=== PATIENT | male | born 1950 | race Caucasian/White ===

== ENCOUNTER → 2019-04-12 08:54 | Outpatient (CLI) | payer OTHER, SELFPAY ==
--- NOTE | 2019-04-12 | DI.US.S_ITS ---
PROCEDURE: US ABDOMEN LIMITED INDICATIONS: RIGHT LOWER QUADRANT PAIN TECHNIQUE: Real-time focused scanning was performed of the inguinal region, with image documentation. COMPARISON: None. FINDINGS: Note is made of a mobile inguinal hernia which is not inflamed. No abnormal fluid collection. IMPRESSION: Right inguinal hernia, without incarceration. If surgical treatment of this finding is anticipated followup by CT scanning is recommended. Dictated by: Jesus Davis M.D. on 04/12/2019 at 14:21 Approved by: Jesus Davis M.D. on 04/12/2019 at 14:22
== END ==
PROVIDERS: PCP Student in an Organized Health Care Education/Training Program; Referring Provider Student in an Organized Health Care Education/Training Program; Visit Provider Student in an Organized Health Care Education/Training Program
DX: R10.31 Right lower quadrant pain (principal); K40.90 Unilateral inguinal hernia, without obstruction or gangrene, not specified as recurrent
CPT/HCPCS: 76705

== ENCOUNTER → 2019-07-23 09:50 | Outpatient (CLI) | payer OTHER, SELFPAY ==
[2019-07-24 03:36] LABS: COVID19 Sendout Not Detected (Not Detect)
== END ==
PROVIDERS: PCP Student in an Organized Health Care Education/Training Program; Visit Provider Physician Assistant
DX: Z01.812 Encounter for preprocedural laboratory examination (principal)
CPT/HCPCS: 87635

== ENCOUNTER 2019-07-26 06:36 | Day surgery (SDC) | payer OTHER, SELFPAY ==
[2019-07-24 11:41] VITALS: BMI 22.5
[2019-07-26] VITALS (10 sets, daily range): BP systolic 115–159; BP diastolic 62–89; PULSE 96–114; RESP 9–19; TEMP 36.1–37.4; O2SAT 96–100; BMI 21.7
[2019-07-26] MEDS: ACETAMINOPHEN 325 MG TABLET 975 MG PO (07:21)
[2019-07-26] MEDS: CELECOXIB 200 MG CAPSULE 400 MG PO (07:21)
[2019-07-26] MEDS: LACTATED RINGERS 1,000 ML 42 ML IV ×2 (07:22→09:05)
[2019-07-26] MEDS: GABAPENTIN 300 MG CAPSULE PO (07:22)
--- NOTE | 2019-07-26 07:23 | PM.PREOP ---
Pre-operative Note COVID-19 COVID-19 status: Negative Result date/Date tested (Pos, Neg/Pending): 07/23/19 Interval Note History & Physical reviewed/Exam performed by Physician: Yes Changes to H&P: No
[2019-07-26] MEDS: CEFAZOLIN 2 GM/100 ML FROZ.PIGGY IV (07:31)
--- NOTE | 2019-07-26 08:09 | SUR.OPER ---
Supine on padded OR bed, head on pillow, arm padded and tucked at side, legs uncrossed, safety belt at thigh, tape over blanket over lower legs .
[2019-07-26] MEDS: BUPIVACAINE 0.25% W/ EPI 30 ML VIAL 60 ML INJ (09:17)
--- NOTE | 2019-07-26 09:24 | PM.OP.1 ---
Operative Date/Time/Diagnoses Date of procedure: 07/26/19 Time of procedure: 09:24 Pre-op diagnosis: right inguinal hernia Post-op diagnosis: other (bilateral inguinal hernias) Procedure & Clinicians Procedure: Laparoscopic repair of right inguinal hernia with BARD large 3-D Max mesh, lysis of intra-abdominal adhesions Same procedure as scheduled: Yes Indications: This is a 68-year-old man with a symptomatic right inguinal hernia Surgeon: Lidia Flood Anesthesia Type: General Operative Notes Findings: large indirect right inguinal hernia, heavily scarred; moderate sized indirect left inguinal hernia (not repaired per patient) Specimen(s): none sent Prosthetic devices, grafts, tissues, transplants, or devices: Large 3-D max mesh Estimated Blood Loss (mL): 5 Blood products transfused: none Procedure in detail: The patient was brought into the operating room and placed supine on the OR table. Sequential compression devices were placed on both legs and turned on. Appropriate perioperative antibiotics were given prior to the start of surgery. General anesthesia was induced the patient was intubated. A Chamberlain catheter was placed sterilely in the bladder. The abdomen was prepped and draped in sterile fashion. Surgical time-out was conducted. Local anesthetic was injected under the skin just superior to the umbilicus and a 5 mm vertical incision was made at this site. The umbilical stalk was grasped with a Eneida and elevated. A Veress needle was passed through the fascia into proper position. The position was tested with a saline drop test which was appropriate for intra-abdominal Veress needle placement. The abdomen was then insufflated in the usual fashion. Once insufflated to 15 mm Hg the Veress needle was removed and a 5 mm optical trocar was placed under direct vision using a 5 mm 30 degree scope. Once the camera was inside the abdomen I took a look around. There was no injury from port placement. Two additional ports were placed in a similar fashion in the right and left mid clavicular line at the level of the umbilicus, one handbreadth lateral to the umbilicus. The umbilical port was upsized to a 10mm port. There were dense adhesions just inferior to the umbilical port. These were taken down using [place] grasper and Metzenbaum scissors with cautery so that the umbilical port could be freed and to avoid getting hung up on the adhesions. There was no bowel in the adhesions. They were all omentum. Attention was then turned to the pelvis, and both inguinal regions were evaluated. On the left sidethere was a moderate indirect hernia defect. On the right side there was a deep indirect hernia defect with heavy scar. On the right side local anesthetic was in the infiltrated into the abdominal wall using 0.25% Marcaine with epi, in the region of the expected peritoneal incision. Metzenbaum scissors attached to cautery were then used to incise the peritoneum transversely from the midline laterally to the ASIS, 10 cm superior to the inguinal hernia defect. The peritoneal flap was developed down to the inguinal hernia defects. When I reached the defect I found that the sac was heavily scarred in to the inguinal canal and cord structures. Prolonged tedious dissection was undertaken adding an extra 45 minutes to the operation in order to take down the sac safely. There was moderate amount of neovascularization and a small blood vessel had to be controlled with 5 mm clips. Once the flap had been fully developed and the cord structures were completely exposed, and the hernia defect had been fully evaluated, I then exposed the pubic tubercle and push down the bladder so that there was space for good mesh placement. There was a small direct defect, no femoral defect, and all were well exposed for mesh placement. A large 3DMax macro porous mesh was then brought into the field. I placed it through the 10 mm port and positioned it within the surgical defect covering the direct, indirect, and femoral space with 5 cm overlap in each direction. I then secured the mesh to the pubic tubercle in 2 locations using dissolvable surgical tacks. I then secured the mesh to the abdominal wall at its superior edge, far away from the triangle of doom and the triangle of pain with a single absorbable tack. These tacks were placed avoiding the epigastric vessels as well. Once the mesh was secured in place I brought up the peritoneal flap. There was no clam shelling or bending of the mesh when the peritoneal flap was brought up. I then secured the peritoneum up to the abdominal wall using the same surgical tacker, with dissolvable tacks. There was no gapping of the peritoneal flap or exposed mesh. The hernia sac was large and redundant, and therefore a PDS endoloop was placed on the sac in order to send should up so that no loops of bowel could involute into the sac. Once the endoloop was in place I took another look at the peritoneal flap. It was well secured to the abdominal wall, with no gaping, no active bleeding, no exposed mesh. I took a final look at the left side. There was a small indirect hernia there, but as the patient had clearly indicated prior to surgery he did not want the left side repaired even if I found a hernia on that side. I took a picture of the left side, and did nothing else to that side. At this point the umbilical port site was closed with 0 Vicryl suture in the fascia using a Imtiaz-Priscilla suture Passer. Local anesthetic was infiltrated into the umbilical area. A total of 60 mL of 0.25% Marcaine with epi was used for the entire case. Insufflation was then removed from the abdomen, and the umbilical port site was closed with 3-0 Vicryl in the subcutaneous layers, and 4 Monocryl in the skin. The other 2 port sites were closed with 4-0 Monocryl in the skin. Each port site was sealed with Dermabond. Local anesthetic was given at each of the port sites and in the fascia. This concluded the procedure. At this point the needle sponge and instrument counts were correct. Patient was awakened from anesthesia and extubated. The Chamberlain catheter was removed, and the testicles were brought down to ensure they were in proper position. The patient was transferred to the postanesthesia care unit in stable condition. Complications: none Post-operative Condition: stable Disposition: PACU
[2019-07-26] MEDS: INSULIN ASPART 100 UNIT/ML 10ML VIAL SUBCUT (09:41)
[2019-07-26] MEDS: fentaNYL 100 MCG/2 ML INJ IV ×2 (09:48→09:57)
[2019-07-26] MEDS: OXYCODONE IR 5 MG TABLET PO (10:34)
== END 2019-07-26 11:01 | disposition home or self-care (01) ==
PROVIDERS: PCP Student in an Organized Health Care Education/Training Program; Referring Provider Surgery; Visit Provider Surgery
PROC: 0YQ54ZZ Repair Right Inguinal Region, Percutaneous Endoscopic Approach (ICD-10-PCS; CPT 49650; principal; 2019-07-26 07:45)
DX: K40.20 Bilateral inguinal hernia, without obstruction or gangrene, not specified as recurrent (principal); I10 Essential (primary) hypertension; R73.03 Prediabetes; K66.0 Peritoneal adhesions (postprocedural) (postinfection)
CPT/HCPCS: 49650; C1781; J0330; J0690; J2405; J2704; J3010

== ENCOUNTER → 2019-09-15 19:34 | Outpatient (ROUT) | payer OTHER, SELFPAY ==
[2019-09-15 19:46] LABS: BUN Creatinine Ratio 23.2 (6-22); Blood Urea Nitrogen 23 mg/dL (9-20); Calcium 10.3 mg/dL (8.4-10.2); Carbon Dioxide 23 mmol/L (22-32); Chloride 103 mmol/L (98-107); Estimated Glomerular Filt Rate > 60.0 mL/min (>60); Glucose 104 mg/dL (80-110); HEMOLYSIS 25 (0-50); Potassium 4.2 mmol/L (3.4-5.1); Sodium 136 mmol/L (137-145)
== END ==
PROVIDERS: PCP Student in an Organized Health Care Education/Training Program; Visit Provider Student in an Organized Health Care Education/Training Program
DX: I10 Essential (primary) hypertension (principal)
CPT/HCPCS: 80048

== ENCOUNTER 2021-02-10 15:39 | Emergency (ER) | payer MEDICARE, SELFPAY ==
[2021-02-10 15:42] VITALS: BP 159/87; PULSE 114; RESP 20; TEMP 36.9; O2SAT 97
[2021-02-10 16:06] LABS: Add Manual Diff / Slide Review NO; Basophils Absolute Auto 100 /uL (0-100); Basophils Percent Auto 1.1 % (0-2); Eosinophils Absolute Auto 0 /uL (0-450); Eosinophils Percent Auto 0.5 % (2-4); Hemoglobin 15.8 g/dL (13.5-17.5); Lymphocytes Absolute Auto 1000 /uL (1100-4500); Lymphocytes Percent Auto 11.4 % (25-40); Mean Corpuscular HGB Conc 34.4 % (30-36); Mean Corpuscular Volume 87.3 fL (80-100); Monocytes Absolute Auto 700 /uL (0-900); Monocytes Percent Auto 8.4 % (3-14); Neutrophils Absolute Auto 6600 /uL (1500-7000); Neutrophils Percent Auto 78.6 % (50-75); Platelet Count 228 X10^3/uL (150-400); Red Blood Cell Count 5.27 X10^6/uL (4.5-5.9); Red Cell Distribution Width 13.8 % (11.6-14.8); White Blood Cell Count 8.4 X10^3/uL (4.5-11.0)
[2021-02-10 16:15] LABS: Alanine Aminotransferase 26 IU/L (<50); Albumin 4.7 g/dL (3.5-5.0); Albumin Globulin Ratio 1.4 (1.0-2.8); Alkaline Phosphatase 44 U/L (38-126); Aspartate Aminotransferase 29 IU/L (17-59); BUN Creatinine Ratio 14.9 (6-22); Bilirubin Total 0.9 mg/dL (0.2-1.3); Blood Urea Nitrogen 18 mg/dL (9-20); Calcium 9.8 mg/dL (8.4-10.2); Carbon Dioxide 25 mmol/L (22-32); Chloride 104 mmol/L (98-107); Estimated Glomerular Filt Rate 59.5 mL/min (>60); Globulin 3.3 g/dL (1.7-4.1); Glucose 192 mg/dL (80-110); HEMOLYSIS < 15 (0-50); Lipase 65 U/L (23-300); Potassium 3.3 mmol/L (3.4-5.1); Sodium 137 mmol/L (137-145)
== END 2021-02-10 18:37 | disposition left against medical advice (07) ==
PROVIDERS: Emergency Provider Emergency Medicine; PCP Student in an Organized Health Care Education/Training Program
DX: Z53.21 Procedure and treatment not carried out due to patient leaving prior to being seen by health care provider (principal)
CPT/HCPCS: 80053; 83690; 85025; 99281

== ENCOUNTER → 2021-08-20 09:06 | Outpatient (CLI) | payer MEDICARE, SELFPAY ==
[2021-08-20 10:25] LABS: COVID19 -Nasal RAPID Negative (Negative)
== END ==
PROVIDERS: PCP Student in an Organized Health Care Education/Training Program; Visit Provider Surgery
DX: Z20.822 Contact with and (suspected) exposure to COVID-19 (principal); Z01.812 Encounter for preprocedural laboratory examination
CPT/HCPCS: 87635; C9803

== ENCOUNTER 2021-08-21 09:02 | Day surgery (SDC) | payer OTHER, SELFPAY ==
[2021-08-21] MEDS: LACTATED RINGERS 1,000 ML 42 ML IV (09:16)
[2021-08-21 09:18] VITALS: BP 134/77; PULSE 105; RESP 15; TEMP 36.8; O2SAT 99; BMI 21.9
--- NOTE | 2021-08-21 10:04 | PM.HP.1 ---
History of Present Illness History of Present Illness Date Patient Seen: 08/21/21 Time Patient Seen: 10:04 Chief complaint: SDC Narrative: Canelo is a 70-year-old man who is here for colonoscopy. He believes it has been greater than 10 years since his last colonoscopy. He has no known family history of colon cancer. Patient History Medical History (Updated 08/21/21 @ 10:04 by Barrett Thayer MD) BP (high blood pressure) Enlarged prostate Gallbladder & bile duct stone with obstruction Hyperglycemia Kidney stone Seasonal allergies Surgical History (Updated 08/08/19 @ 09:14 by Lidia Flood MD) Hx of cholecystectomy (2006) Family & Social History Family History Father Hypertension Congestive heart failure Mother Cancer Social History: household members spouse Tobacco & Substance use: Smoking Status Never smoker alcohol intake current alcohol intake frequency holiday/special occasion Substance Use Type does not use Meds Home Medications and Allergies Home Medications Medication Instructions Recorded Confirmed Type lisinopril 40 mg tablet 40 mg PO DAILY 07/13/19 08/21/21 History loratadine 10 mg tablet (Claritin) 10 mg PO DAILY 07/13/19 08/21/21 History triamcinolone acetonide 0.025 % 1 applictn topical DAILY 07/13/19 08/08/19 History topical cream amlodipine 10 mg tablet 10 mg PO DAILY 07/24/19 08/21/21 History docusate sodium 100 mg capsule 100 mg PO BID prevent constipation 07/26/19 08/21/21 Rx from pain medications #20 caps oxycodone 5 mg tablet 5 mg PO Q4H PRN post operative 07/26/19 08/21/21 Rx pain #30 tabs Allergies Allergy/AdvReac Type Severity Reaction Status Date / Time grass pollen-perennial rye, Allergy Intermediate Verified 08/21/21 09:26 standar Exam Vital Signs (past 8 hours): - 08/21/21 09:18 Temperature 98.2 F Pulse Rate 105 H Respiratory Rate 15 Blood Pressure 134/77 Pulse Oximetry 99 Oxygen Delivery Method Room Air Oxygen Delivery Method Room Air Const General: healthy appearing Resp Effort & Inspection: normal respiratory effort Assessment & Plan Assessment and plan (1) Colon cancer screening: Status: Acute Plan We reviewed the risks and benefits of colonoscopy for colon cancer screening and he would like to proceed. Time Spent With Patient Critical Care time: I spent a total of [] minutes of critical care time on this patient's care today; this time is exclusive of procedural time.
[2021-08-21] MEDS: MIDAZOLAM 5 MG/5 ML VIAL 6 MG IV (10:19)
[2021-08-21] MEDS: fentaNYL 250 MCG/5 ML INJ 125 MCG IV (10:19)
--- NOTE | 2021-08-21 10:35 | PM.OP.COLON ---
Operative Date/Time/Diagnoses Date of procedure: 08/21/21 Time of procedure: 10:36 Pre-op diagnosis: Colon cancer screening Post-op diagnosis: same Procedure & Clinicians Study performed: Colonoscopy Same procedure as scheduled: Yes Surgeon: Barrett Thayre Procedure Notes Procedure in detail: Surgeon: Barrett Thayer MD Procedure: The patient was brought to the endoscopy suite, placed in left lateral decubitus position. The patient was connected to monitoring devices. A time-out was performed. Sedation was administered. Once the patient was adequately sedated, a digital rectal exam was performed and was normal. The scope was then inserted and advanced to the cecum where the appendiceal orifice was identified and photographed. The scope was then slowly withdrawn over greater than 6 minutes. The mucosa was thoroughly inspected. No polyps were noted. No diverticula were noted. The scope was retroflexed in the rectum. No abnormalities were noted there. The scope was straightened and removed. The patient was awakened and brought to recovery. Versed: 6 mg Fentanyl: 125 mcg EBL: 0 Findings: Normal colon Scope withdrawal time: 7 Sedation minutes: 18 Post-procedure Recommendations: Colonoscopy in 10 years
[2021-08-21 10:40] VITALS: BP 107/77; PULSE 98; RESP 16; TEMP 37.3; O2SAT 94
[2021-08-21 10:50] VITALS: BP 117/75; PULSE 92; RESP 15; TEMP 37.2; O2SAT 99
== END 2021-08-21 11:05 | disposition home or self-care (01) ==
PROVIDERS: PCP Student in an Organized Health Care Education/Training Program; Referring Provider Surgery; Visit Provider Surgery
PROC: 0DJD8ZZ Inspection of Lower Intestinal Tract, Via Natural or Artificial Opening Endoscopic (ICD-10-PCS; CPT 45378; principal; 2021-08-21 10:00)
DX: Z12.11 Encounter for screening for malignant neoplasm of colon (principal)
CPT/HCPCS: G0121; 99152; J2250; J3010

== ENCOUNTER → 2023-01-19 08:32 | Outpatient (CLI) | payer MEDICARE, SELFPAY ==
[2023-01-19 09:11] LABS: Add Manual Diff / Slide Review NO; Basophils Absolute Auto 100 /uL (0-100); Eosinophils Absolute Auto 100 /uL (0-450); Eosinophils Percent Auto 1.6 % (2-4); Hematocrit 47.4 % (41-53); Hemoglobin 16.5 g/dL (13.5-17.5); Lymphocytes Absolute Auto 700 /uL (1100-4500); Lymphocytes Percent Auto 12.7 % (25-40); Mean Corpuscular HGB Conc 34.8 % (30-36); Mean Corpuscular Hemoglobin 30.8 PG (26-34); Mean Corpuscular Volume 88.4 fL (80-100); Monocytes Absolute Auto 500 /uL (0-900); Monocytes Percent Auto 8.6 % (3-14); Neutrophils Absolute Auto 4000 /uL (1500-7000); Neutrophils Percent Auto 76.1 % (50-75); Platelet Count 184 X10^3/uL (150-400); Red Blood Cell Count 5.36 X10^6/uL (4.5-5.9); Red Cell Distribution Width 13.6 % (11.6-14.8); White Blood Cell Count 5.2 X10^3/uL (4.5-11.0)
[2023-01-19 10:08] LABS: Alanine Aminotransferase 27 IU/L (<50); Albumin 4.4 g/dL (3.5-5.0); Albumin Globulin Ratio 1.7 (1.0-2.8); Alkaline Phosphatase 40 U/L (38-126); Aspartate Aminotransferase 24 IU/L (17-59); BUN Creatinine Ratio 22.9 (6-22); Bilirubin Total 0.7 mg/dL (0.2-1.3); Blood Urea Nitrogen 24 mg/dL (9-20); Calcium 10.3 mg/dL (8.4-10.2); Carbon Dioxide 26 mmol/L (22-32); Chloride 101 mmol/L (98-107); Cholesterol 177 mg/dL (140-199); Estimated Glomerular Filt Rate > 60 mL/min (>60); Globulin 2.6 g/dL (1.7-4.1); Glucose 179 mg/dL (80-110); HDL Cholesterol 46 mg/dL (40-60); HEMOLYSIS < 15 (0-50); LDL Cholesterol Calculated 97 mg/dL (<100); Sodium 133 mmol/L (137-145); Triglycerides 170 mg/dL (35-150)
[2023-01-19 10:41] LABS: Microalbumi Creatinin Ratio Ur 154.3 ug/mg CR (<30); Microalbumin Urine Random 14.2 mg/dL (0-1.6)
== END ==
PROVIDERS: PCP Family Medicine; Referring Provider Family Medicine; Visit Provider Family Medicine
DX: I10 Essential (primary) hypertension (principal); E11.9 Type 2 diabetes mellitus without complications
CPT/HCPCS: 36415; 80053; 80061; 82043; 82570; 85025; 87389

== ENCOUNTER → 2023-02-12 08:11 | Outpatient (CLI) | payer MEDICARE, SELFPAY ==
[2023-02-12 09:30] LABS: Hemoglobin A1C% w Est Avg Glu 7.1 % (4.0-6.0)
== END ==
PROVIDERS: PCP Family Medicine; Referring Provider Family Medicine; Visit Provider Family Medicine
DX: E11.9 Type 2 diabetes mellitus without complications (principal)
CPT/HCPCS: 36415; 83036

== ENCOUNTER → 2023-05-13 07:55 | Outpatient (CLI) | payer MEDICARE, SELFPAY ==
[2023-05-13 09:03] LABS: Hemoglobin A1C% w Est Avg Glu 6.2 % (4.0-6.0)
[2023-05-13 09:34] LABS: Prostate Specific Antigen Scrn 0.339 ng/mL (0.1-4.0)
== END ==
PROVIDERS: PCP Family Medicine; Referring Provider Family Medicine; Visit Provider Family Medicine
DX: Z00.00 Encounter for general adult medical examination without abnormal findings (principal); E11.29 Type 2 diabetes mellitus with other diabetic kidney complication; Z12.5 Encounter for screening for malignant neoplasm of prostate; R80.9 Proteinuria, unspecified; E78.5 Hyperlipidemia, unspecified
CPT/HCPCS: 36415; 83036; G0103

== ENCOUNTER 2023-10-03 12:48 | Emergency (ER) | payer MEDICARE, SELFPAY ==
[2023-10-03] VITALS (11 sets, daily range): BP systolic 128–165; BP diastolic 70–88; PULSE 83–106; RESP 14; TEMP 37.4; O2SAT 96–98; BMI 23.1
[2023-10-03] MEDS: ONDANSETRON 4 MG/2 ML INJ IV (13:17)
[2023-10-03] MEDS: MORPHINE 4 MG/ML INJ IV (13:18)
--- NOTE | 2023-10-03 13:26 | ED.ABDPAIN ---
HPI - Abdominal Pain General Chief Complaint: Urogenital-Male Stated Complaint: [place]; Kidney Pain, Blood in Urine Time Seen by Provider: 10/03/23 13:25 Source: patient Mode of arrival: Ambulatory History of Present Illness HPI narrative: 72-year-old male with history of previous kidney stones, last event 3 years ago, now with 1 week duration of right flank pain, some discomfort to right groin area. Some darkening of the urine. No fevers or chills. He took ibuprofen this morning with little relief. He feels this is more sharp in quality than his previous kidney stone passing events. He does not have any recent diarrhea, no black or red stool. No cough or shortness of breath. No injury, fall, blunt trauma, lifting, new activities. Related Data Previous Rx's Medication Instructions Recorded metronidazole 0.75 % topical cream 1 applic topical DAILY #45 grams 01/19/23 atorvastatin 20 mg tablet (Lipitor) 20 mg PO BEDTIME cholesterol #90 02/23/23 tabs glipizide 2.5 mg tablet, extended 2.5 mg PO DAILY blood sugars #90 02/23/23 release 24 hr tabs amlodipine 10 mg tablet 10 mg PO DAILY #90 tabs 05/18/23 valsartan 80 1 tab PO DAILY #90 tabs 05/18/23 mg-hydrochlorothiazide 12.5 mg tablet ondansetron 4 mg disintegrating 4 mg PO Q6H PRN nausea and 10/03/23 tablet vomiting #10 tabs oxycodone-acetaminophen 2.5 mg-325 1 tab PO Q4-6H PRN pain #10 tabs 10/03/23 mg tablet tamsulosin 0.4 mg capsule 0.4 mg PO DAILY #30 caps 10/03/23 Allergies Allergy/AdvReac Type Severity Reaction Status Date / Time grass pollen-perennial rye, Allergy Intermediate Verified 05/18/23 09:44 standar Review of Systems Review of Systems Narrative: see HPI Patient History Medical History (Updated 10/03/23 @ 15:28 by Dominick Luther MD) Type 2 diabetes mellitus with microalbuminuria, without long-term current use of insulin Encounter for subsequent annual wellness visit (AWV) in Medicare patient Eczema (~2017) Actinic keratosis (~2018) Allergies (~1955) Mumps (~1957) Measles (~1959) Chicken pox (~1961) Tinnitus (~1991) Rosacea Benign essential HTN Seasonal allergies Enlarged prostate Hyperglycemia Gallbladder & bile duct stone with obstruction (~2002) Kidney stone (~2013) BP (high blood pressure) Surgical History (Updated 02/21/23 @ 19:32 by Merissa Daily) Anesthesia History of hernia repair (~2020) Hx of cholecystectomy (2006) Family History (Updated 02/21/23 @ 19:34 by Merissa Daily) Father Hypertension Congestive heart failure History of heart disease Mother Cancer Grandfather Kidney failure Social History household members: spouse Smoking Status: Never smoker alcohol intake: current Smoking Status: Never smoker alcohol intake frequency: holidays/special occasions only Substance Use Type: does not use Exam Narrative Exam Narrative: GENERAL: Well-developed patient, in mild distress. HEAD: Atraumatic. Normocephalic. EYES: Pupils equal round and reactive. Extraocular motions intact. No scleral icterus. No injection or drainage. ENT: Nose without bleeding, purulent drainage. Throat without erythema, tonsillar hypertrophy or exudate. Airway patent. NECK: Trachea midline. Non tender CARDIOVASCULAR: Regular rate and rhythm without murmurs, gallops, or rubs. RESPIRATORY: Clear to auscultation. Breath sounds equal bilaterally. No wheezes, rales, or rhonchi. GASTROINTESTINAL: Abdomen soft, non-tender, nondistended. EXTREMITIES: No edema or joint tenderness. BACK: Nontender without deformity or crepitance. No flank tenderness. NEURO: AOx3. SKIN: No rash or erythema of visible areas Initial Vital Signs Initial Vital Signs: Vital Signs Temperature 99.4 F 10/03/23 12:51 Pulse Rate 95 H 10/03/23 12:51 Respiratory Rate 14 10/03/23 12:51 Blood Pressure 133/80 10/03/23 12:51 Pulse Oximetry 97 10/03/23 12:51 Oxygen Delivery Method Room Air 10/03/23 12:51 Course Orders Ordered: ED Orders 10/03/23 13:02 EKG-12 Lead Stat 10/03/23 13:09 Complete Blood Count AUTO DIFF Stat Comprehensive Metabolic Panel Stat Lipase Stat 10/03/23 13:35 CT abdomen pelvis w con Stat 10/03/23 13:40 Urine Microscopic Stat Ondansetron HCl (Ondansetron 4 Mg/2 Ml Inj) 4 mg IV NOW PRN PRN Reason: Nausea And Vomiting Last Admin: 10/03/23 13:17 Dose: 4 mg Documented By: DIANNE Ondansetron HCl (Ondansetron 4 Mg Odt) 4 mg PO NOW PRN PRN Reason: Nausea And Vomiting Discontinued Medications Sodium Chloride (Normal Saline 0.9%) 1,000 mls @ 500 mls/hr IV BOLUS ONE Stop: 10/03/23 15:35 Last Infusion: 10/03/23 15:22 Dose: Infused Documented By: Admin: 10/03/23 13:41 Dose: 500 mls/hr Documented By: DIANNE Morphine Sulfate (Morphine 4 Mg/Ml Inj) 4 mg IV NOW ONE Stop: 10/03/23 13:04 Last Admin: 10/03/23 13:18 Dose: 4 mg Documented By: DIANNE Oxycodone/Acetaminophen (Oxycodone/Acetaminophen 5/325 Tablet) 1 tab PO NOW ONE Stop: 10/03/23 15:17 Vital Signs Vital signs: Vital Signs - 8 hr 10/03/23 12:51 10/03/23 13:24 10/03/23 13:24 Temperature 99.4 F Pulse Rate 95 H 89 Respiratory Rate 14 Blood Pressure 133/80 139/77 Pulse Oximetry 97 98 Oxygen Delivery Method Room Air 10/03/23 13:30 10/03/23 13:30 10/03/23 13:55 Temperature Pulse Rate 106 H 95 H Respiratory Rate Blood Pressure 165/83 H Pulse Oximetry 98 98 Oxygen Delivery Method 10/03/23 13:55 10/03/23 14:00 10/03/23 14:00 Temperature Pulse Rate 90 Respiratory Rate Blood Pressure 155/82 H 135/71 Pulse Oximetry 96 Oxygen Delivery Method 10/03/23 14:30 10/03/23 14:30 10/03/23 14:50 Temperature Pulse Rate 88 91 H Respiratory Rate Blood Pressure 131/76 Pulse Oximetry 97 98 Oxygen Delivery Method 10/03/23 14:51 10/03/23 14:51 10/03/23 15:00 Temperature Pulse Rate 95 H Respiratory Rate Blood Pressure 149/85 H 137/88 Pulse Oximetry 98 Oxygen Delivery Method 10/03/23 15:00 10/03/23 15:30 10/03/23 15:30 Temperature Pulse Rate 86 83 Respiratory Rate Blood Pressure 131/70 Pulse Oximetry 97 96 Oxygen Delivery Method 10/03/23 16:01 10/03/23 16:01 Temperature Pulse Rate 86 Respiratory Rate Blood Pressure 128/77 Pulse Oximetry 96 Oxygen Delivery Method MDM - Abdominal Pain Lab Data Attestation: I reviewed the patient's lab results. 10/03/23 13:09 10/03/23 13:09 Labs: Lab Results 10/03/23 10/03/23 Range/Units 13:09 13:40 WBC 7.1 (4.5-11.0) X10^3/uL RBC 5.39 (4.5-5.9) X10^6/uL Hgb 16.8 (13.5-17.5) g/dL Hct 47.9 (41-53) % MCV 88.9 (80-100) fL MCH 31.2 (26-34) PG MCHC 35.1 (30-36) % RDW 13.7 (11.6-14.8) % Plt Count 213 (150-400) X10^3/uL Neut % (Auto) 72.9 (50-75) % Lymph % (Auto) 13.9 L (25-40) % Lewis % (Auto) 10.9 (3-14) % Eos % (Auto) 1.7 L (2-4) % Baso % (Auto) 0.6 (0-2) % Neut # (Auto) 5200 (5060-4335) /uL Lymph # (Auto) 1000 L (4699-7083) /uL Lewis # (Auto) 800 (0-900) /uL Eos # (Auto) 100 (0-450) /uL Baso # (Auto) 0 (0-100) /uL Sodium 136 L (137-145) mmol/L Potassium 3.9 (3.4-5.1) mmol/L Chloride 104 (98-107) mmol/L Carbon Dioxide 23 (22-32) mmol/L BUN 29 H (9-20) mg/dL Creatinine 1.40 H (0.66-1.25) mg/dL Estimated GFR 54 L (>60) mL/min BUN/Creatinine Ratio 20.7 (6-22) Glucose 117 H (80-110) mg/dL Calcium 10.5 H (8.4-10.2) mg/dL Total Bilirubin 1.4 H (0.2-1.3) mg/dL AST 37 (17-59) IU/L ALT 44 (<50) IU/L Alkaline Phosphatase 54 (38-126) U/L Total Protein 7.6 (6.3-8.2) g/dL Albumin 4.5 (3.5-5.0) g/dL Globulin 3.1 (1.7-4.1) g/dL Albumin/Globulin Ratio 1.5 (1.0-2.8) Lipase 68 (23-300) U/L Urine RBC 5-10/hpf H (0-5/HPF) Urine WBC 0-1/hpf (0-5/HPF) Ur Squamous Epith Cells None seen (0-5/HPF) Urine Bacteria None seen (None) Vol Urine Centrifuged 10ml (spun) Point of care testing: Urine Dip Bedside Urine Glucose Negative Bedside Urine Bilirubin - Negative Bedside Urine Ketone - Negative Urine Specific Timblin 1.005 Bedside Urine Occult Blood + Bedside Urine pH 7.0 Bedside Urine Protein - Negative Bedside Urine Urobilinogen - Negative Bedside Urine Nitrite - Negative Bedside Urine Leukocytes - Negative Esterase Imaging Data CT scan - abdomen/pelvis: Radiologist's Impression: [place] [address] CT Scan Report Signed Patient: Canelo Phan MR#: [id number] : 1950 Acct:[id number] Age/Sex: 72 / M Date of Service: 10/03/23 Loc: ED Accession Number: [id number] Procedure: CT abdomen pelvis w con Ordering Provider: Dominick Luther MD PROCEDURE: CT ABDOMEN PELVIS W CON INDICATIONS: right flank pain, hx stones, thinks feels different TECHNIQUE: After the administration of intravenous contrast, axial sections acquired from the lung bases to the pubic symphysis. Coronal and sagittal reformats were performed. For radiation dose reduction, the following was used: automated exposure control, adjustment of mA and/or kV according to patient size. COMPARISON: None. FINDINGS: Lower thorax: The lung bases are clear. Heart size normal. No hiatal hernia. Liver: Normal in size and attenuation. No contour deformity present. Biliary system: Cholecystectomy. No intra or extrahepatic bile duct dilation. Pancreas: Unremarkable without mass or inflammation evident. Spleen: Normal in size and density. Adrenals: Normal morphology and density. Reproductive system: Unremarkable as visualized. Urinary system: Moderate right hydronephrosis and hydroureter extends to the distal right ureter where there is a 5.5 mm calculus present. No additional calculi. No left hydronephrosis. Several simple bilateral renal cysts measure up to 2.3 cm on the right and 1.6 cm on the left Gastrointestinal system: The bowel is unremarkable without evidence of bowel obstruction or inflammation. The stomach appears unremarkable. Appendix: No findings to suggest acute appendicitis. Peritoneal spaces: No mesenteric or retroperitoneal adenopathy. No free air. No free fluid. Vasculature: The IVC, aorta and iliac vasculature are unremarkable. Abdominal wall: Left inguinal hernia(s) contain fat without bowel involvement. Right inguinal hernia repair surgical clips noted. Musculoskeletal: Normal bone mineralization. Degenerative disc disease and arthropathy noted in lower lumbar spine. No acute fractures. IMPRESSION: Right-sided obstructive uropathy and moderate hydronephrosis associated with 5.5 mm calculus in the distal right ureter Additional chronic findings detailed above Approved by: David Kang M.D. on 10/03/2023 at 14:01 ECG Data Attestation: I personally reviewed and interpreted this ECG as follows: Interpretation: Normal sinus rhythm with rate of 84, no obvious ST segment elevation or depression changes. Right bundle branch block noted. [place] 172, QRS 126, QTC 498. [facility] Narrative Medical decision making narrative: 72-year-old male with one week duration right flank pain with somewhat recent radiation to the right groin, prior kidney stones, this feels somewhat different in quality to him. No injury. Afebrile, sirs screen negative. No tenderness CVA or anterior abdominal exam. Labs pending, check creatinine/GFR. Urinalysis pending. Patient just had ibuprofen, we will avoid Toradol for now. IV Dilaudid/morphine. GFR favorable, patient prefers advanced imaging, CT abdomen and pelvis with IV contrast. He looks more comfortable after opiate analgesia, declines re-dose for now CT shows 5.5 mm diameter right distal ureteral stone with hydronephrosis. Urinalysis shows slight blood, not obviously infected. Patient seemed comfortable. Likely outpatient trial of expulsive therapy. We will contact Urology for timing of follow up. 1515, case discussed with Dr. Fitzpatrick Urology, can see patient in follow up, he will contact patient to arrange further follow up. Advises trial of expulsive therapy. We will discharge patient on tamsulosin. Take anti-inflammatory pain medications. Pain medications and antinausea medications as needed. Return precautions discussed with patient Critical Care Time Critical Care Time Critical Care Time: Yes Total Critical Care Time: 35 Attestation: The high probability of a clinically significant, sudden or life threatening deterioration of the [abdominopelvic, genitourinary, gastrointestinal] system(s) required my full and direct attention, intervention and personal management. The aggregate critical care time was [31] minutes. This time is in addition to time spent performing reported procedures but includes the following: [x] Data Review and interpretation [x] Patient assessment and monitoring of vital signs [x] Documentation [x] Medication orders and management Discharge Plan Departure Patient Disposition: Home Clinical Impression: Acute right flank pain, Calculus of right ureter Instructions: DI for Kidney Stones Activity Restrictions/Additional Instructions: Right-sided flank pain, not improving last few days, blood in urine, CT imaging showed 5.5 mm stone distal right ureter. Urinalysis did not show infection. No fever. Case discussed with local urologist Dr. Fitzpatrick he would like to see you in clinic, we will contact your for follow up recommendations. His contact information also provided clinic. Trial of tamsulosin to help expel the stone. Take anti-inflammatory pain medications ibuprofen. Take additional medication to help control pain and nausea as needed. Follow up with Urology. Return to this/nearest emergency department for any change worsening symptoms or any concerns prior Prescriptions: New oxycodone-acetaminophen 2.5-325 mg tablet 1 tab PO Q4-6H PRN (Reason: pain) Qty: 10 0RF tamsulosin 0.4 mg capsule 0.4 mg PO DAILY Qty: 30 0RF ondansetron 4 mg tablet,disintegrating 4 mg PO Q6H PRN (Reason: nausea and vomiting) Qty: 10 0RF No Action metronidazole 0.75 % cream 1 applic topical DAILY Qty: 45 11RF glipizide 2.5 mg tablet extended release 24hr 2.5 mg PO DAILY Qty: 90 3RF atorvastatin [Lipitor] 20 mg tablet 20 mg PO BEDTIME Qty: 90 3RF valsartan-hydrochlorothiazide 80-12.5 mg tablet 1 tab PO DAILY Qty: 90 3RF amlodipine 10 mg tablet 10 mg PO DAILY Qty: 90 3RF Referrals: Dimitry Fitzpatrick DO [Physician] - Nela Jin DO [Primary Care Provider] - Stand Alone Forms: Patient Portal/API
[2023-10-03 13:30] LABS: Alanine Aminotransferase 44 IU/L (<50); Albumin 4.5 g/dL (3.5-5.0); Albumin Globulin Ratio 1.5 (1.0-2.8); Alkaline Phosphatase 54 U/L (38-126); Aspartate Aminotransferase 37 IU/L (17-59); BUN Creatinine Ratio 20.7 (6-22); Bilirubin Total 1.4 mg/dL (0.2-1.3); Blood Urea Nitrogen 29 mg/dL (9-20); Calcium 10.5 mg/dL (8.4-10.2); Carbon Dioxide 23 mmol/L (22-32); Chloride 104 mmol/L (98-107); Estimated Glomerular Filt Rate 54 mL/min (>60); Globulin 3.1 g/dL (1.7-4.1); Glucose 117 mg/dL (80-110); HEMOLYSIS 39 (0-50); Lipase 68 U/L (23-300); Potassium 3.9 mmol/L (3.4-5.1); Sodium 136 mmol/L (137-145); Total Protein 7.6 g/dL (6.3-8.2)
[2023-10-03 13:33] LABS: Add Manual Diff / Slide Review NO; Basophils Absolute Auto 0 /uL (0-100); Basophils Percent Auto 0.6 % (0-2); Eosinophils Absolute Auto 100 /uL (0-450); Eosinophils Percent Auto 1.7 % (2-4); Hematocrit 47.9 % (41-53); Hemoglobin 16.8 g/dL (13.5-17.5); Lymphocytes Absolute Auto 1000 /uL (1100-4500); Lymphocytes Percent Auto 13.9 % (25-40); Mean Corpuscular HGB Conc 35.1 % (30-36); Mean Corpuscular Hemoglobin 31.2 PG (26-34); Mean Corpuscular Volume 88.9 fL (80-100); Monocytes Absolute Auto 800 /uL (0-900); Monocytes Percent Auto 10.9 % (3-14); Neutrophils Absolute Auto 5200 /uL (1500-7000); Neutrophils Percent Auto 72.9 % (50-75); Platelet Count 213 X10^3/uL (150-400); Red Blood Cell Count 5.39 X10^6/uL (4.5-5.9); Red Cell Distribution Width 13.7 % (11.6-14.8); White Blood Cell Count 7.1 X10^3/uL (4.5-11.0)
--- NOTE | 2023-10-03 13:35 | DI.CT.S_ITS ---
PROCEDURE: CT ABDOMEN PELVIS W CON INDICATIONS: right flank pain, hx stones, thinks feels different TECHNIQUE: After the administration of intravenous contrast, axial sections acquired from the lung bases to the pubic symphysis. Coronal and sagittal reformats were performed. For radiation dose reduction, the following was used: automated exposure control, adjustment of mA and/or kV according to patient size. COMPARISON: None. FINDINGS: Lower thorax: The lung bases are clear. Heart size normal. No hiatal hernia. Liver: Normal in size and attenuation. No contour deformity present. Biliary system: Cholecystectomy. No intra or extrahepatic bile duct dilation. Pancreas: Unremarkable without mass or inflammation evident. Spleen: Normal in size and density. Adrenals: Normal morphology and density. Reproductive system: Unremarkable as visualized. Urinary system: Moderate right hydronephrosis and hydroureter extends to the distal right ureter where there is a 5.5 mm calculus present. No additional calculi. No left hydronephrosis. Several simple bilateral renal cysts measure up to 2.3 cm on the right and 1.6 cm on the left Gastrointestinal system: The bowel is unremarkable without evidence of bowel obstruction or inflammation. The stomach appears unremarkable. Appendix: No findings to suggest acute appendicitis. Peritoneal spaces: No mesenteric or retroperitoneal adenopathy. No free air. No free fluid. Vasculature: The IVC, aorta and iliac vasculature are unremarkable. Abdominal wall: Left inguinal hernia(s) contain fat without bowel involvement. Right inguinal hernia repair surgical clips noted. Musculoskeletal: Normal bone mineralization. Degenerative disc disease and arthropathy noted in lower lumbar spine. No acute fractures. IMPRESSION: Right-sided obstructive uropathy and moderate hydronephrosis associated with 5.5 mm calculus in the distal right ureter Additional chronic findings detailed above Approved by: Dvaid Kang M.D. on 10/03/2023 at 14:01
[2023-10-03] MEDS: SODIUM CHLORIDE 0.9% 1,000 ML 500 ML IV (13:41)
[2023-10-03 14:20] LABS: RBC Urine 5-10/HPF (0-5/HPF); Urine Volume 10mL (spun); WBC Urine 0-1/HPF (0-5/HPF)
[2023-10-03 14:21] LABS: Bacteria Urine None Seen; Squamous Epithelial Cell Urine None Seen (0-5/HPF)
--- NOTE | 2023-10-03 15:00 | EKG_ITS ---
[address] [address] Test Date: 2023-10-03 Pat Name: Canelo Phan Department: [facility] Room: Gender: Male Director Surgical: SHERRI : 1950 Requested By: Order Number: [id number] Reading MD: Feliberto Poon Measurements Intervals [place] Rate: 84 P: 50 NE: 172 QRS: -28 QRSD: 126 T: 8 QT: 422 QTc: 498 Interpretive Statements Normal sinus rhythm Right bundle branch block Minimal voltage criteria for LVH, may be normal variant ( R in aVL ) Electronically Signed On 10-04-2023 14:28:12 PDT by Feliberto Poon
--- NOTE | 2023-10-03 16:06 | PC.NURSE ---
Offered pt pain med at 1325, declined at this time.
== END 2023-10-03 16:26 | disposition home or self-care (01) ==
PROVIDERS: Emergency Provider Emergency Medicine; PCP Family Medicine
DX: N20.1 Calculus of ureter (principal); R10.9 Unspecified abdominal pain
CPT/HCPCS: 36415; 74177; 80053; 81003; 81015; 83690; 85025; 93005; 96361; 96374; 96375; 99284; J2270; J2405; Q9967

== ENCOUNTER → 2023-10-26 14:28 | Outpatient (CLI) | payer MEDICARE, SELFPAY ==
[2023-11-05 07:11] LABS: Ca oxalate dihydrate 30 % (.); Ca oxalate monohydr 60 % (.); Hydroxyapatite 10 % (.); Size 5x5 mm (.)
== END ==
PROVIDERS: PCP Family Medicine; Visit Provider Urology
DX: N20.0 Calculus of kidney (principal)
CPT/HCPCS: 82365

== ENCOUNTER → 2024-05-16 07:32 | Outpatient (CLI) | payer MEDICARE, SELFPAY ==
[2024-05-16 08:17] LABS: Alanine Aminotransferase 48 IU/L (<50); Albumin 4.8 g/dL (3.5-5.0); Albumin Globulin Ratio 1.7 (1.0-2.8); Alkaline Phosphatase 50 U/L (38-126); Aspartate Aminotransferase 38 IU/L (17-59); BUN Creatinine Ratio 20.6 (6-22); Bilirubin Total 1.5 mg/dL (0.2-1.3); Blood Urea Nitrogen 29 mg/dL (9-20); Calcium 10.5 mg/dL (8.4-10.2); Carbon Dioxide 25 mmol/L (22-32); Chloride 99 mmol/L (98-107); Cholesterol 143 mg/dL (140-199); Estimated Glomerular Filt Rate 53 mL/min (>60); Globulin 2.8 g/dL (1.7-4.1); Glucose 175 mg/dL (80-110); HDL Cholesterol 50 mg/dL (40-60); HEMOLYSIS < 15 (0-50); LDL Cholesterol Calculated 52 mg/dL (<100); Sodium 135 mmol/L (137-145); Total Protein 7.6 g/dL (6.3-8.2); Triglycerides 206 mg/dL (35-150)
[2024-05-16 08:22] LABS: Hemoglobin A1C% w Est Avg Glu 5.8 % (4.0-6.0)
[2024-05-16 12:34] LABS: Hep C Virus Ab w/Reflex Quant NEGATIVE s/c (NEGATIVE)
== END ==
PROVIDERS: PCP Family Medicine; Referring Provider Family Medicine; Visit Provider Family Medicine
DX: E11.29 Type 2 diabetes mellitus with other diabetic kidney complication (principal); R80.9 Proteinuria, unspecified; I10 Essential (primary) hypertension
CPT/HCPCS: 36415; 80053; 80061; 83036; 86803

== ENCOUNTER → 2024-06-02 14:56 | Outpatient (CLI) | payer MEDICARE, SELFPAY ==
--- NOTE | 2024-06-02 14:57 | DI.US.S_ITS ---
PROCEDURE: US RENAL COMPLETE INDICATIONS: renal insuff. rt hydronephrosis on CT TECHNIQUE: Real-time scanning was performed of the kidneys and bladder, with image documentation. COMPARISON: [facility], CT, CT ABDOMEN PELVIS W CON, 10/03/2023, 13:41. FINDINGS: Kidneys: Kidneys are normal in size. Right kidney measures 10.6 cm long; left kidney measures 11.9 cm long. Right renal cortical thickness is 1.1 cm; left renal cortical thickness is 1.1 cm. Renal cortical echotexture is increased. No hydronephrosis or nephrolithiasis. No suspicious solid mass lesions. Bilateral Bosniak 1 and 2 equivalent renal cystic lesions, requiring no further follow-up. Largest measures 2.7 cm on the inferior pole of the right kidney. Bladder: Pre-void bladder volume is 565 mL. Post-void residual is 196 mL. Pre-void images demonstrate no intraluminal masses or stones. On pre-void images, both ureteral jets are noted with color Doppler interrogation. (Of note, ureteral jets may not be detectable in up to 25% of cases due to insufficient differences in specific gravity between ureteral and bladder urine). Miscellaneous: No free pelvic fluid. IMPRESSION: Increased renal cortical echogenicity, consistent with chronic parenchymal disease. No hydronephrosis. Dictated by: Hari Guillaume M.D. on 06/02/2024 at 16:28 Approved by: Hari Guillaume M.D. on 06/02/2024 at 16:29
== END ==
PROVIDERS: PCP Family Medicine; Referring Provider Family Medicine; Visit Provider Family Medicine
DX: N28.9 Disorder of kidney and ureter, unspecified (principal); N13.30 Unspecified hydronephrosis
CPT/HCPCS: 76770

== ENCOUNTER → 2024-07-21 11:46 | Outpatient (CLI) | payer MEDICARE, SELFPAY ==
[2024-07-21 12:36] LABS: Hematocrit 48.7 % (41-53); Hemoglobin 16.6 g/dL (13.5-17.5)
[2024-07-21 12:58] LABS: BUN Creatinine Ratio 22.8 (6-22); Blood Urea Nitrogen 26 mg/dL (9-20); Calcium 10.1 mg/dL (8.4-10.2); Carbon Dioxide 20 mmol/L (22-32); Chloride 102 mmol/L (98-107); Estimated Glomerular Filt Rate > 60 mL/min (>60); Glucose 151 mg/dL (70-99); HEMOLYSIS < 15 (0-50); Potassium 4.1 mmol/L (3.4-5.1); Sodium 135 mmol/L (137-145)
[2024-07-21 14:28] LABS: Creatinine Urine Random 111.48 mg/dL; Protein (Total) Urine Random 72 mg/dL (0-12); Protein Creatinine Ratio Urine 0.64 GRAM/24H
== END ==
PROVIDERS: PCP Family Medicine; Referring Provider Student in an Organized Health Care Education/Training Program; Visit Provider Student in an Organized Health Care Education/Training Program
DX: N05.9 Unspecified nephritic syndrome with unspecified morphologic changes (principal)
CPT/HCPCS: 36415; 80048; 82570; 84156; 85014; 85018

== ENCOUNTER → 2024-09-08 15:04 | Outpatient (CLI) | payer MEDICARE, SELFPAY ==
[2024-09-08 16:08] LABS: Hemoglobin A1C% w Est Avg Glu 6.4 % (4.0-6.0)
[2024-09-08 16:24] LABS: Appearance Urine UA CLEAR; Bilirubin Urine UA NEGATIVE (NEGATIVE); Color Urine UA YELLOW; Glucose Urine UA NEGATIVE (Negative); Ketones Urine UA NEGATIVE (NEGATIVE); Leukocyte Esterase Urine UA NEGATIVE (NEGATIVE); Nitrite Urine UA NEGATIVE (Negative); Occult Blood Urine UA NEGATIVE (Negative); Protein Urine UA 1+ (Negative); Specific Gravity Urine UA 1.015 (1.000-1.035); Urobilinogen Urine UA 0.2 E.U./dL (0.2); pH Urine UA 7.0 (4.5-8.0)
[2024-09-08 16:25] LABS: Albumin 4.5 g/dL (3.5-5.0); Blood Urea Nitrogen 23 mg/dL (9-20); Calcium 10.0 mg/dL (8.4-10.2); Carbon Dioxide 23 mmol/L (22-32); Chloride 103 mmol/L (98-107); Estimated Glomerular Filt Rate > 60 mL/min (>60); Glucose 96 mg/dL (70-99); HEMOLYSIS < 15 (0-50); Phosphorous 3.3 mg/dL (2.3-3.7); Potassium 3.9 mmol/L (3.4-5.1); Sodium 136 mmol/L (137-145)
[2024-09-08 16:35] LABS: Culture Indicated Urine Cult Not Indicated
[2024-09-08 16:46] LABS: Protein (Total) Urine Random 52 mg/dL (0-12); Protein Creatinine Ratio Urine 0.68 GRAM/24H
== END ==
PROVIDERS: PCP Family Medicine; Referring Provider Student in an Organized Health Care Education/Training Program; Visit Provider Student in an Organized Health Care Education/Training Program
DX: N18.2 Chronic kidney disease, stage 2 (mild) (principal)
CPT/HCPCS: 36415; 80069; 81001; 82570; 83036; 83970; 84156

== ENCOUNTER → 2024-11-29 08:15 | Outpatient (CLI) | payer MEDICARE, SELFPAY ==
[2024-11-29 09:06] LABS: Hemoglobin A1C% w Est Avg Glu 6.2 % (4.0-6.0)
[2024-11-29 09:18] LABS: Blood Urea Nitrogen 31 mg/dL (9-20); Calcium 10.0 mg/dL (8.4-10.2); Carbon Dioxide 23 mmol/L (22-32); Chloride 105 mmol/L (98-107); Estimated Glomerular Filt Rate > 60 mL/min (>60); Glucose 160 mg/dL (70-99); HEMOLYSIS < 15 (0-50); Potassium 4.9 mmol/L (3.4-5.1); Sodium 138 mmol/L (137-145)
[2024-11-29 09:49] LABS: Microalbumi Creatinin Ratio Ur 226.0 ug/mg CR (<30)
== END ==
PROVIDERS: PCP Family Medicine; Referring Provider Family Medicine; Visit Provider Family Medicine
DX: E11.41 Type 2 diabetes mellitus with diabetic mononeuropathy (principal); E83.52 Hypercalcemia; I10 Essential (primary) hypertension; N28.9 Disorder of kidney and ureter, unspecified; E78.2 Mixed hyperlipidemia; E11.22 Type 2 diabetes mellitus with diabetic chronic kidney disease; N18.2 Chronic kidney disease, stage 2 (mild)
CPT/HCPCS: 36415; 80048; 82043; 82570; 83036